=== PATIENT | female | born 1970 | race Caucasian/White ===

== ENCOUNTER 2018-12-16 07:46 | Observation (INO) ==
[2018-12-16] MEDS ORDERED: LACTATED RINGERS 1,000 ML IV ONE (07:57)
[2018-12-16] MEDS ORDERED: ONDANSETRON 4 MG/2 ML VIAL IV ONE (07:57)
--- NOTE | 2018-12-16 08:12 | Emergency Department Note ---
General Adult HPI - General Chief complaint: Cold/Flu Symptoms Stated complaint: cough, nausea/vomiting x 8 days. Time Seen by Provider: 12/16/18 07:57 Source: patient Mode of arrival: ambulatory Limitations: no limitations - History of Present Illness HPI Narrative: This patient has been ill for the last week with flulike symptoms. However symptoms may have started with more of a UTI type picture with some pelvic pain and left flank pain but that seems to have improved. She now has a lot of nausea vomiting started having some diarrhea today achiness all over. Some abdominal cramping. - Related Data Previous Rx's Medication Instructions Recorded bupropion HCl 75 mg tablet 75 mg PO BID #30 tab 11/06/17 buspirone 15 mg tablet 15 mg PO BID #30 tab 11/06/17 naltrexone 50 mg tablet 50 mg PO QDAY #30 tab 11/06/17 sertraline 50 mg tablet 50 mg PO QDAY #30 tab 11/06/17 trazodone 50 mg tablet 25 mg PO QHS #30 tab 11/06/17 Allergies Allergy/AdvReac Type Severity Reaction Status Date / Time codeine Allergy Intermediate Itching Verified 12/16/18 07:49 Review of Systems All systems ED: reviewed and negative except as stated. Past Medical History - Past Medical History Medical history: Reports: no medical history - Social History smoking status: Former smoker Physical Exam Limitations: no limitations General appearance: alert Head: atraumatic Eye: Present: normal appearance ENT: normal exam Neck: Present: normal inspection Chest: Present: normal inspection Respiratory: Present: normal lung sounds bilaterally Cardiovascular: Present: regular rate, normal rhythm, normal heart sounds Abdominal: Present: soft, tenderness. Absent: distention, guarding, rebound Abdominal tenderness: Present: diffuse, mild Neurological: Present: alert Psychiatric: Present: normal affect Skin: Present: warm, dry Course Vital Signs Temperature 98.8 F 12/16/18 07:46 Pulse Rate 110 H 12/16/18 07:46 Respiratory Rate 22 12/16/18 07:46 Blood Pressure 103/59 12/16/18 07:46 Pulse Oximetry (%) 99 12/16/18 07:46 Temperature 98.8 F 12/16/18 07:46 Pulse Rate 72 12/16/18 08:07 Respiratory Rate 20 12/16/18 08:07 Blood Pressure 115/63 12/16/18 08:34 Pulse Oximetry (%) 98 12/16/18 08:07 Medical Decision Making - Lab Data Result diagrams: 12/16/18 08:04 12/16/18 08:04 Lab Results 12/16/18 Range/Units 08:04 WBC 10.3 (4.5-11.0) K/mcL RBC 4.29 (4.00-5.20) M/mcL Hgb 12.1 (12.0-15.0) g/dL Hct 37.0 (36.0-48.0) % MCV 86.2 (80.0-100.0) fL MCH 28.1 (26.0-34.0) pg MCHC 32.6 (31.0-36.0) g/dL RDW 13.7 (11.5-14.5) % Plt Count 292 (140-440) K/mcL MPV 8.5 (7.4-10.4) fL Gran % 87.0 H (38.0-78.0) % Lymph % (Auto) 6.3 L (15.5-49.0) % [place] % (Auto) 6.4 (1.0-12.0) % Eos % (Auto) 0.1 (0.0-7.0) % Baso % (Auto) 0.2 (0.0-2.0) % Gran # 8.9 H (1.8-8.0) K/mcL Lymph # (Auto) 0.7 L (1.5-4.8) K/mcL [place] # (Auto) 0.7 (0.1-0.9) K/mcL Eos # (Auto) 0 (0.0-0.7) K/mcL Baso # (Auto) 0 (0.0-0.3) K/mcL Disposition Pt seen by INSTALLER TECHNICIAN/PA only: No Clinical Impression: Upper respiratory infection Disposition: Still a Patient Condition: Good Time of Disposition: 09:02
[2018-12-16] MEDS ORDERED: METOCLOPRAMIDE 10 MG/2 ML VIAL IV ONE (08:31)
[2018-12-16] MEDS ORDERED: KETOROLAC 30 MG/ML VIAL IV ONE (08:39)
[2018-12-16 08:57] LABS: Basophils # (Auto) 0 K/mcL (0.0-0.3); Basophils % (Auto) 0.2 % (0.0-2.0); Eosinophils # (Auto) 0 K/mcL (0.0-0.7); Eosinophils % (Auto) 0.1 % (0.0-7.0); Lymphocytes # (Auto) 0.7 K/mcL (1.5-4.8); Lymphocytes % (Auto) 6.3 % (15.5-49.0); Mean Cell Volume 86.2 fL (80.0-100.0); Mean Corpuscular HGB Conc 32.6 g/dL (31.0-36.0); Monocytes # (Auto) 0.7 K/mcL (0.1-0.9); Monocytes % (Auto) 6.4 % (1.0-12.0); Platelet Count 292 K/mcL (140-440); RBC 4.29 M/mcL (4.00-5.20); Red Cell Distribution Width 13.7 % (11.5-14.5)
[2018-12-16 09:08] LABS: Appearance,Urine HAZY; Bacteria,Urine FEW /hpf (0); Bilirubin,Urine NEG (NEG); Color,Urine YELLOW; Glucose,Urine (UA) NEGATIVE (NEG); Leukocyte Esterase,Urine 25 /uL (NEG); Mucus,Urine MANY /hpf (0); Protein,Urine 100 mg/dL (NEG); Specific Gravity,Urine 1.019 (1.000-1.035); Urine Blood 0.2 mg/dL (<0.03); Urine Hyaline Cast 1 /lpf (0-2); Urine RBC 63 /hpf (0-1); Urine Squamous Epithelial Cell 5 /hpf (0-4); Urine Transitional Epi Cells < 1 /hpf (0-2); Urine WBC 68 /hpf (0-4); Urobilinogen,Urine NEG (NEG)
[2018-12-16 09:18] LABS: ALT/SGPT 191 U/l (0-40); Albumin 3.5 gm/dL (3.2-5.2); Alkaline Phosphatase 291 U/L (39-117); Blood Urea Nitrogen 11 mg/dl (6-20)
[2018-12-16 10:27] LABS: C-Reactive Protein 22.7 mg/dl (0.0-0.8); Lipase 22 U/L (7-60)
--- NOTE | 2018-12-16 11:04 | Emergency Department Note ---
General Adult HPI - General Chief complaint: Cold/Flu Symptoms Stated complaint: cough, nausea/vomiting x 8 days. Time Seen by Provider: 12/16/18 07:57 Source: patient Mode of arrival: ambulatory Limitations: no limitations - History of Present Illness HPI Narrative: See dictated history and physical by Dr. suero. Patient has rather significant epigastric area discomfort. A lipase is being added to her labs because of her elevated liver function tests and epigastric pain. - Related Data Previous Rx's Medication Instructions Recorded bupropion HCl 75 mg tablet 75 mg PO BID #30 tab 11/06/17 buspirone 15 mg tablet 15 mg PO BID #30 tab 11/06/17 naltrexone 50 mg tablet 50 mg PO QDAY #30 tab 11/06/17 sertraline 50 mg tablet 50 mg PO QDAY #30 tab 11/06/17 trazodone 50 mg tablet 25 mg PO QHS #30 tab 11/06/17 Allergies Allergy/AdvReac Type Severity Reaction Status Date / Time codeine Allergy Intermediate Itching Verified 12/16/18 07:49 Past Medical History - Past Medical History [facility] Narrative: Medical History (Last Updated 12/16/18 @ 12:24 by Luis Antonio Matt DO) Alcoholism, chronic (Chronic) Marijuana smoker (Chronic) Cigarette smoker (Chronic) Depression (Chronic) - Social History smoking status: Former smoker Physical Exam Limitations: no limitations General appearance: alert, in no apparent distress Head: atraumatic, normocephalic Eye: Present: EOMI Neck: Present: trachea midline. Absent: lymphadenopathy, thyromegaly Chest: Present: symmetric chest wall rise Respiratory: Present: normal lung sounds bilaterally. Absent: respiratory distress, rales/crackles, wheezes Cardiovascular: Present: regular rate, normal rhythm. Absent: systolic murmur, diastolic murmur Abdominal: Present: soft, tenderness, guarding. Absent: distention, rebound, rigidity, organomegaly, mass Abdominal tenderness: Present: epigastrium, moderate Extremities: Absent: pedal edema, pretibial edema, calf tenderness Neurological: Present: alert, oriented X3 Psychiatric: Present: normal affect, normal mood Skin: Present: warm, dry Course Vital Signs Temperature 98.8 F 12/16/18 07:46 Pulse Rate 110 H 12/16/18 07:46 Respiratory Rate 22 12/16/18 07:46 Blood Pressure 103/59 12/16/18 07:46 Pulse Oximetry (%) 99 12/16/18 07:46 Temperature 98.8 F 12/16/18 07:46 Pulse Rate 72 12/16/18 08:07 Respiratory Rate 20 12/16/18 08:07 Blood Pressure 117/69 12/16/18 12:00 Pulse Oximetry (%) 98 12/16/18 08:07 Medical Decision Making - MDM Narrative Medical decision making narrative: Labs include a white count of 10.3, hemoglobin 12.1, hematocrit 37.0. LFTs elevated with AST at 77, ALT at 191, alk phos at 291. UA demonstrates 25 leukocyte esterase with 68 WBCs, 5 squamous epis and a few bacteria. 11:00 AM Lipase is negative. CRP however is markedly elevated at 22.1. Because of this need to do imaging. We will start with ultrasound because she is fairly thin. - Medical Records Medical records reviewed: Yes I reviewed the patient's medical records. - Lab Data Lab results reviewed: Yes I reviewed the patient's lab results. Result diagrams: 12/16/18 08:04 12/16/18 08:04 Lab Results 12/16/18 12/16/18 12/16/18 Range/Units 08:04 08:04 08:04 WBC 10.3 (4.5-11.0) K/mcL RBC 4.29 (4.00-5.20) M/mcL Hgb 12.1 (12.0-15.0) g/dL Hct 37.0 (36.0-48.0) % MCV 86.2 (80.0-100.0) fL MCH 28.1 (26.0-34.0) pg MCHC 32.6 (31.0-36.0) g/dL RDW 13.7 (11.5-14.5) % Plt Count 292 (140-440) K/mcL MPV 8.5 (7.4-10.4) fL Gran % 87.0 H (38.0-78.0) % Lymph % (Auto) 6.3 L (15.5-49.0) % [place] % (Auto) 6.4 (1.0-12.0) % Eos % (Auto) 0.1 (0.0-7.0) % Baso % (Auto) 0.2 (0.0-2.0) % Gran # 8.9 H (1.8-8.0) K/mcL Lymph # (Auto) 0.7 L (1.5-4.8) K/mcL [place] # (Auto) 0.7 (0.1-0.9) K/mcL Eos # (Auto) 0 (0.0-0.7) K/mcL Baso # (Auto) 0 (0.0-0.3) K/mcL Sodium 134 (133-145) mmol/L Potassium 3.9 (3.3-5.1) mmol/L Chloride 97 (96-108) mmol/L Carbon Dioxide 24 (22-30) mmol/L Anion Gap 13.0 (8-16) BUN 11 (6-20) mg/dl Creatinine 0.8 (0.6-1.1) mg/dl GFR Calculation 87 Glucose 146 H (70-105) mg/dL Calcium 9.3 (8.6-10.4) mg/dl Total Bilirubin 0.3 (0.0-1.0) mg/dL AST 77 H (0-37) U/l ALT 191 H (0-40) U/l Alkaline Phosphatase 291 H (39-117) U/L C-Reactive Protein 22.7 H (0.0-0.8) mg/dl Total Protein 7.0 (5.9-8.4) gm/dL Albumin 3.5 (3.2-5.2) gm/dL Globulin 3.5 (2.2-3.7) gm/dL Albumin/Globulin Ratio 1.0 (1.0-2.3) Lipase 22 (7-60) U/L Urine Color Urine Appearance Urine pH (5.0-9.0) Ur Specific [place] (1.000-1.035) Urine Protein (NEG) mg/dL Urine Glucose (UA) (NEG) mg/dL Urine Ketones (NEG) mg/dL Urine Occult Blood (<0.03) mg/dL Urine Nitrate (NEG) Urine Bilirubin (NEG) mg/dL Urine Urobilinogen (NEG) mg/dL Ur Leukocyte Esterase (NEG) /uL Urine RBC (0-1) /hpf Urine WBC (0-4) /hpf Ur Squamous Epith Cells (0-4) /hpf Ur Transition Epith Cell (0-2) /hpf Urine Bacteria (0) /hpf Hyaline Casts (0-2) /lpf Urine Mucus (0) /hpf Ur Culture Indicated? 12/16/18 Range/Units 08:30 WBC (4.5-11.0) K/mcL RBC (4.00-5.20) M/mcL Hgb (12.0-15.0) g/dL Hct (36.0-48.0) % MCV (80.0-100.0) fL MCH (26.0-34.0) pg MCHC (31.0-36.0) g/dL RDW (11.5-14.5) % Plt Count (140-440) K/mcL MPV (7.4-10.4) fL Gran % (38.0-78.0) % Lymph % (Auto) (15.5-49.0) % [place] % (Auto) (1.0-12.0) % Eos % (Auto) (0.0-7.0) % Baso % (Auto) (0.0-2.0) % Gran # (1.8-8.0) K/mcL Lymph # (Auto) (1.5-4.8) K/mcL [place] # (Auto) (0.1-0.9) K/mcL Eos # (Auto) (0.0-0.7) K/mcL Baso # (Auto) (0.0-0.3) K/mcL Sodium (133-145) mmol/L Potassium (3.3-5.1) mmol/L Chloride (96-108) mmol/L Carbon Dioxide (22-30) mmol/L Anion Gap (8-16) BUN (6-20) mg/dl Creatinine (0.6-1.1) mg/dl GFR Calculation Glucose (70-105) mg/dL Calcium (8.6-10.4) mg/dl Total Bilirubin (0.0-1.0) mg/dL AST (0-37) U/l ALT (0-40) U/l Alkaline Phosphatase (39-117) U/L C-Reactive Protein (0.0-0.8) mg/dl Total Protein (5.9-8.4) gm/dL Albumin (3.2-5.2) gm/dL Globulin (2.2-3.7) gm/dL Albumin/Globulin Ratio (1.0-2.3) Lipase (7-60) U/L Urine Color Yellow Urine Appearance Hazy Urine pH 6.0 (5.0-9.0) Ur Specific [place] 1.019 (1.000-1.035) Urine Protein 100 A (NEG) mg/dL Urine Glucose (UA) Negative (NEG) mg/dL Urine Ketones Neg (NEG) mg/dL Urine Occult Blood 0.2 A (<0.03) mg/dL Urine Nitrate Neg (NEG) Urine Bilirubin Neg (NEG) mg/dL Urine Urobilinogen Neg (NEG) mg/dL Ur Leukocyte Esterase 25 A (NEG) /uL Urine RBC 63 H (0-1) /hpf Urine WBC 68 H (0-4) /hpf Ur Squamous Epith Cells 5 H (0-4) /hpf Ur Transition Epith Cell < 1 (0-2) /hpf Urine Bacteria Few A (0) /hpf Hyaline Casts 1 (0-2) /lpf Urine Mucus Many A (0) /hpf Ur Culture Indicated? No - Radiology Data Radiology results reviewed: Yes I reviewed the patient's radiology results. Disposition Pt seen by DESIGN ENGINEER PRODUCTS/PA only: No Clinical Impression: Elevated LFTs, Elevated serum alkaline phosphatase level Upper respiratory infection Qualifiers: URI type: unspecified URI Qualified Code(s): J06.9 - Acute upper respiratory infection, unspecified UTI (urinary tract infection) Qualifiers: Urinary tract infection type: acute cystitis Hematuria presence: without hematuria Qualified Code(s): N30.00 - Acute cystitis without hematuria Cholecystitis, acute with cholelithiasis Qualifiers: Biliary obstruction: with biliary obstruction Qualified Code(s): K80.01 - Calculus of gallbladder with acute cholecystitis with obstruction Summary: 12:10 PM I spoke with Dr. Rashel Murphy, general surgeon, who kindly accepts this patient in transfer to inpatient care because of cholelithiasis and cholecystitis with a probable impacted stone in the neck of the gallbladder measuring 7-8 mm. She a lso has a UTI probably and a recent viral URI. Will provide holding orders including Zosyn, pain meds, nausea med, and Tessalon Perles for her cough. At present she does not need anything for pain or nausea. Disposition: Xfer As Inpt ([facility]) Condition: Good
--- NOTE | 2018-12-16 11:51 | Ultrasound Report ---
History: Epigastric pain with elevated liver enzymes FINDINGS: The liver is normal in size and homogeneous. There is an incidental 1.3 x 1.7 x 2.2 cm cyst in the central portion liver at the boundary between the left and right lobes. Doppler shows normal blood flow in the hepatic and portal veins. The gallbladder wall is mildly thickened ranging from 3 to 4 mm. The patient was nontender while scanning over the gallbladder. In the neck of the gallbladder there is a 7 x 8 mm echogenic structure which did not move. This is more likely a stone rather than a polyp. There is no sludge within the lumen. No para cholecystic fluid collection is present. The pancreas appears normal in size and homogeneous. No ascites is present. IMPRESSION: Cholelithiasis and thickened gallbladder wall suggesting chronic cholecystitis Simple cyst in the liver Interpreted and Authenticated by: Nazario Angelo 12/16/18
[2018-12-16] MEDS ORDERED: ONDANSETRON 4 MG/2 ML VIAL IV PRN (12:10)
[2018-12-16] MEDS ORDERED: NALOXONE HCL 0.4 MG/ML VIAL IV PRN (12:10)
[2018-12-16] MEDS ORDERED: HYDROmorphone 2 MG/ML VIAL IV PRN (12:15)
[2018-12-16] MEDS ORDERED: PIPERACILLIN SODIUM/TAZOBACTAM 3.375 GM in DEXTROSE 5% IN WATER 50 ML IV ONE (12:16)
[2018-12-16] MEDS ORDERED: BENZONATATE 100 MG CAPSULE PO ONE (12:18)
[2018-12-16] MEDS: 0.9 % SODIUM CHLORIDE 1,000 ML IV SCH (12:56)
[2018-12-16] MEDS ORDERED: PROMETHAZINE 25 MG/ML VIAL IV PRN (16:34)
[2018-12-16] MEDS ORDERED: LORazepam 2 MG/ML VIAL IV PRN (16:34)
--- NOTE | 2018-12-16 16:41 | General Surg History&Physical ---
History of Present Illness Patient information: Note initiated : 12/16/18 at 4:38 pm Service Date, if different from initiated Date: [] Patient: Letitia Young a 48 y/o F admitted on 12/16/18 for Cough, N/V x 8 Days. Chief Complaint: [] Chief complaint: abdominal pain in general fatigue and malaise HPI: Ms. Young is a 48 year old F was admitted with acute cholecystitis with cholelithiasis. The patient is an extremely poor historian. She states that she became ill last week. She had what she describes as a flulike illness since last Friday. This was associated with headache nausea cough, abdominal pain, heartburn. She had multiple episodes of nausea but is not quite sure if it was postprandial. Her cough was productive of some phlegm. Her bowel movements have been daily. She did not have any dysuria frequency urgency. She was seen in the emergency room and was noted to have some epigastric and right upper quadrant pain. Abdominal ultrasound revealed thickened gallbladder wall with stone impacted in the gallbladder neck. She is admitted and will have cholecystectomy tomorrow. Review of Systems - Constitutional fatigue, headache(s), malaise, weakness, weight loss - EENT Nose, mouth and throat: headache(s), no nasal congestion, no sinus pain, no sore throat, no tongue swelling - Cardiovascular no chest pain with activity, no dyspnea on exertion, no palpatations, no syncope - Respiratory cough, chest congestion, change in phlegm color, pain with cough, no wheezing - Gastrointestinal abdominal pain, bloating, cramping, heartburn, nausea, vomiting - Genitourinary Genitourinary: no dysuria, no urinary frequency, no urinary hesitancy, no urinary incontinence, no urinary urgency - Musculoskeletal no arthralgias, no joint swelling, no neck pain, no numbness - Integumentary no new lesions, no non-healing lesions, no pruritus, no rash - Neurological headache(s), no abnormal hearing, no confusion, no dizziness - Psychiatric anxiety, depression, no memory loss - Endocrine no fatigue, no polydipsia, no polyphagia, no polyuria - Hematologic/Lymphatic no easy bleeding, no easy bruising, no lymphadenopathy - Allergic/Immunologic no tongue swelling, no throat swelling, no itchy eyes, no uticaria, no wheezing, no lip swelling Past History Past medical history: Chronic depression Prior history of alcoholism No history of chronic medical illness Patient has not taken prescribed medications for more than a year Past surgical history: No surgical procedures Past family history: Both parents A 73 alive and well 5 siblings all well Past social history: History of chronic alcoholism and still drinks Former smoker Daily marijuana use Medications and Allergies Home Medications Medication Instructions Recorded Confirmed Type No Known Home Meds 12/16/18 12/16/18 History Allergies Allergy/AdvReac Type Severity Reaction Status Date / Time codeine Allergy Intermediate Itching Verified 12/16/18 07:49 Exam Temp Pulse Resp BP Pulse Ox 98.6 F 95 H 18 110/65 97 12/16/18 16:00 12/16/18 16:00 12/16/18 16:00 12/16/18 16:00 12/16/18 16:00 - General physical appearance well developed, well nourished, no distress, moderate pain - Eyes PERRL, normal ocular movement. negative: icteric - ENT normal pinna, normal nares, normal mucosa, no hearing loss, no congestion - Head Head exam IM: Present: atraumatic, normal inspection, normocephalic - Neck no masses, no bruits, trachea midline, no lymphadenopathy, no venous distension - Cardiovascular Cardiovascular exam IM: Present: normal rate and rhythm, RRR, +S1, +S2. Absent: irregular rhythm, JVD, tachycardia - Respiratory normal expansion, normal respiratory effort, clear to auscultation - Abdomen Abdomen: Present: soft, tender (right upper quadrant and epigastric tenderness with guarding), bowel sounds Hernia: Present: none - Genitourinary Present: normal external genitalia - Integumentary Present: no rash, no growths, no abnormal pigmentation - Neurologic Present: normal coordination, normal sensation - Musculoskeletal Present: normal gait, normal posture - Psychiatric Present: oriented to time, oriented to person, oriented to place, speech is normal, memory intact Assessment and Plan (1) Cholecystitis, acute with cholelithiasis Start antibiotic coverage tonight Nothing by mouth after midnight Schedule for cholecystectomy tomorrow Status: Acute Qualifiers: Biliary obstruction: without biliary obstruction Qualified Code(s): K80.00 - Calculus of gallbladder with acute cholecystitis without obstruction (2) UTI (urinary tract infection) Will cover with IV antibiotics and discharged on oral antibiotics Status: Acute Qualifiers: Urinary tract infection type: acute cystitis Hematuria presence: without hematuria Qualified Code(s): N30.00 - Acute cystitis without hematuria (3) Alcoholism, chronic Status: Chronic Comment: states quit daily use Nov 2018 (4) Depression Status: Chronic Qualifiers: Depression Type: unspecified Qualified Code(s): F32.9 - Major depressive disorder, single episode, unspecified; F32.9 - Major depressive disorder, single episode, unspecified; F32.9 - Major depressive disorder, single episode, unspecified
[2018-12-16 17:21] LABS: Amphetamine Screen,Urine NONE DETECTED (NONDETECTED); Benzodiazepines Screen,Urine NONE DETECTED (NONDETECTED); Cocaine Screen,Urine NONE DETECTED (NONDETECTED); Opiate Screen,Urine NONE DETECTED (NONDETECTED); Oxycodone, Urine Screen NONE DETECTED (NONDETECTED)
[2018-12-16] MEDS: PIPERACILLIN SODIUM/TAZOBACTAM 3.375 GM in DEXTROSE 5% IN WATER 50 ML IV SCH ×2 (18:05→23:43)
[2018-12-16] MEDS: PANTOPRAZOLE 40 MG VIAL IV SCH (18:10)
[2018-12-16] MEDS ORDERED: ACETAMINOPHEN 1,000 MG/100 ML BOTTLE IV ONE ×2 (18:23→21:58)
[2018-12-16] MEDS: ACETAMINOPHEN 1,000 MG in PREMIX 1 BAG IV SCH ×2 (18:26→22:04)
[2018-12-17] MEDS: 0.9 % SODIUM CHLORIDE 1,000 ML IV SCH ×5 (03:41→19:25)
[2018-12-17] MEDS: HYDROmorphone 2 MG/ML VIAL IV PRN ×7 (03:49→23:45)
[2018-12-17] MEDS ORDERED: ACETAMINOPHEN 1,000 MG/100 ML BOTTLE IV ONE ×2 (04:35→11:09)
[2018-12-17] MEDS: ACETAMINOPHEN 1,000 MG in PREMIX 1 BAG IV SCH ×2 (04:38→12:26)
[2018-12-17 06:22] LABS: Basophils # (Auto) 0 K/mcL (0.0-0.3); Basophils % (Auto) 0.4 % (0.0-2.0); Eosinophils # (Auto) 0.1 K/mcL (0.0-0.7); Granulocytes % (Auto) 71.8 % (38.0-78.0); Lymphocytes # (Auto) 1.3 K/mcL (1.5-4.8); Mean Cell Volume 85.6 fL (80.0-100.0); Mean Corpuscular HGB Conc 32.7 g/dL (31.0-36.0); Monocytes # (Auto) 0.9 K/mcL (0.1-0.9); Monocytes % (Auto) 10.8 % (1.0-12.0); Platelet Count 259 K/mcL (140-440); RBC 3.67 M/mcL (4.00-5.20); Red Cell Distribution Width 13.9 % (11.5-14.5)
[2018-12-17 06:52] LABS: ALT/SGPT 134 U/l (0-40); Alkaline Phosphatase 245 U/L (39-117); Bilirubin,Direct < 0.2 mg/dL (0.0-0.3); Blood Urea Nitrogen 7 mg/dl (6-20); Gamma Glutamyl Transpeptidase 102 U/L (5-36); Uric Acid 1.7 mg/dL (2.5-8.0)
[2018-12-17] MEDS: PANTOPRAZOLE 40 MG VIAL IV SCH ×2 (07:35→17:17)
[2018-12-17] MEDS: PIPERACILLIN SODIUM/TAZOBACTAM 3.375 GM in DEXTROSE 5% IN WATER 50 ML IV SCH ×3 (09:15→17:57)
[2018-12-17] MEDS ORDERED: IPRATROPIUM/ALBUTEROL 3 ML AMPUL.NEB NEB ONE (10:48)
[2018-12-17] MEDS ORDERED: ONDANSETRON 4 MG/2 ML VIAL IV ONE (10:55)
[2018-12-17] MEDS ORDERED: LIDOCAINE HCL/PF 100 MG/5 ML SYRINGE IV ONE (10:55)
[2018-12-17] MEDS ORDERED: PROPOFOL 200 MG/20 ML VIAL IV ONE (10:55)
[2018-12-17] MEDS ORDERED: fentaNYL 250 MCG/5 ML VIAL IV ONE (10:55)
[2018-12-17] MEDS ORDERED: ROCURONIUM 10 MG/ML ML IV ONE (10:55)
[2018-12-17] MEDS ORDERED: SUGAMMADEX SODIUM 200 MG/2 ML VIAL IV ONE (10:55)
[2018-12-17] MEDS ORDERED: MIDAZOLAM 5 MG/5 ML VIAL IV ONE (10:55)
[2018-12-17] MEDS ORDERED: DEXAMETHASONE 10 MG/ML VIAL IV ONE (10:55)
[2018-12-17] MEDS ORDERED: FLUMAZENIL 0.1 MG/ML ML IV PRN (11:09)
[2018-12-17] MEDS ORDERED: PROMETHAZINE 25 MG/ML VIAL IM PRN (11:09)
[2018-12-17] MEDS ORDERED: IPRATROPIUM/ALBUTEROL 3 ML AMPUL.NEB NEB PRN (11:09)
[2018-12-17] MEDS ORDERED: KETOROLAC 30 MG/ML VIAL IV PRN (11:09)
[2018-12-17] MEDS ORDERED: NALOXONE HCL 0.4 MG/ML VIAL IV PRN (11:09)
[2018-12-17] MEDS ORDERED: MEPERIDINE 25 MG/ML SYRINGE IV PRN (11:09)
[2018-12-17] MEDS ORDERED: LACTATED RINGERS 250 ML IV PRN (11:09)
[2018-12-17] MEDS ORDERED: diphenhydrAMINE 50 MG/ML VIAL IV PRN (11:09)
[2018-12-17] MEDS ORDERED: BENZOCAINE/MENTHOL 1 LOZENGE PO PRN (11:09)
[2018-12-17] MEDS ORDERED: PROMETHAZINE 25 MG/ML VIAL IV PRN ×2 (11:09→12:43)
[2018-12-17] MEDS ORDERED: ONDANSETRON 4 MG/2 ML VIAL IV PRN ×2 (11:09→12:43)
[2018-12-17] MEDS ORDERED: LACTATED RINGERS 1,000 ML IV SCH (11:15)
[2018-12-17] MEDS ORDERED: IOPAMIDOL 100 ML BOTTLE IJ ONE (11:30)
--- NOTE | 2018-12-17 11:55 | Brief Operative Note ---
Date of procedure: 12/17/18 Pre-op diagnosis: cholelithiasis with cholecystitis Post-op diagnosis: other (cholelithiasis with cholecystitis) Procedure: LAPAROSCOPIC CHOLECYSTECTOMY WITH CHOLANGIOGRAM Grafts/Implants: No Anesthesia: GETA Findings: EDEMATOUS GALLBLADDER WITH ADHESIONS Complications: none Surgeon: Harriet Murphy Estimated blood loss (cc): 5 Specimens Removed/Pathology: other (GALLBLADDER) Condition: stable Disposition: PACU
[2018-12-17] MEDS: fentaNYL 100 MCG/2 ML VIAL IV PRN ×4 (12:17→12:27)
[2018-12-17] MEDS: 0.9 % SODIUM CHLORIDE 10 ML SYRINGE IV SCH ×2 (13:29→22:12)
[2018-12-17] MEDS: ACETAMINOPHEN 1,000 MG/100 ML BOTTLE IV SCH ×2 (17:18→23:45)
[2018-12-17] MEDS: LORazepam 2 MG/ML VIAL IV PRN (21:15)
[2018-12-18] MEDS: PIPERACILLIN SODIUM/TAZOBACTAM 3.375 GM in DEXTROSE 5% IN WATER 50 ML IV SCH ×3 (00:18→13:27)
[2018-12-18] MEDS: LORazepam 2 MG/ML VIAL IV PRN (01:26)
[2018-12-18] MEDS: HYDROmorphone 2 MG/ML VIAL IV PRN ×3 (02:46→10:42)
[2018-12-18] MEDS: 0.9 % SODIUM CHLORIDE 1,000 ML IV SCH ×2 (04:44→15:28)
[2018-12-18] MEDS: ACETAMINOPHEN 1,000 MG/100 ML BOTTLE IV SCH ×2 (05:57→12:21)
[2018-12-18] MEDS: 0.9 % SODIUM CHLORIDE 10 ML SYRINGE IV SCH ×2 (06:00→13:32)
[2018-12-18 06:55] LABS: Basophils # (Auto) 0 K/mcL (0.0-0.3); Basophils % (Auto) 0 % (0.0-2.0); Eosinophils # (Auto) 0 K/mcL (0.0-0.7); Eosinophils % (Auto) 0 % (0.0-7.0); Granulocytes % (Auto) 85.7 % (38.0-78.0); Lymphocytes % (Auto) 9.2 % (15.5-49.0); Mean Cell Volume 85.8 fL (80.0-100.0); Monocytes # (Auto) 0.5 K/mcL (0.1-0.9); Monocytes % (Auto) 5.1 % (1.0-12.0); Platelet Count 286 K/mcL (140-440); Red Cell Distribution Width 13.8 % (11.5-14.5)
[2018-12-18] MEDS: PANTOPRAZOLE 40 MG VIAL IV SCH (07:28)
[2018-12-18 07:57] LABS: ALT/SGPT 149 U/l (0-40); Albumin 3.1 gm/dL (3.2-5.2); Alkaline Phosphatase 270 U/L (39-117); Bilirubin,Direct < 0.2 mg/dL (0.0-0.3); Blood Urea Nitrogen 7 mg/dl (6-20); Gamma Glutamyl Transpeptidase 116 U/L (5-36); Uric Acid 1.5 mg/dL (2.5-8.0)
--- NOTE | 2018-12-18 11:56 | Operative Note ---
DATE OF OPERATION: 12/17/2018 PREOPERATIVE DIAGNOSIS: Cholelithiasis with cholecystitis. POSTOPERATIVE DIAGNOSIS: Cholelithiasis with cholecystitis. PROCEDURE: Laparoscopic cholecystectomy with cholangiogram. SURGEON: Harriet Murphy MD DESCRIPTION OF PROCEDURE: Under general anesthesia, the patient's abdomen was prepped and draped in a sterile field. A time-out procedure was carried out as per protocol. Supraumbilical incision was made. Veress needle was inserted. Abdomen was insufflated with 3 liters of CO2. A 12 mm port was placed. An edematous gallbladder with multiple attempts and acute adhesions were noted. Under videoscopic guidance, a 12 mm port and two 5 mm ports were placed in the right subcostal region. The gallbladder was grasped in position. Dissection at the infundibulum was carried out, and the cystic duct was identified. The cystic artery was also identified. Cystic duct was dissected and was clipped at its junction with the gallbladder with a single clip. A cholangiocath was placed transabdominally and a small incision was made in the cystic duct distal to the clip. Cholangiocath was placed and was secured with a single clip. A cholangiogram was done. It showed normal caliber duct with easy tapering into the duodenum with free flow into the duodenum without filling defect. Four photos were taken to assess for radiologic evaluation. The instrumentation was replaced and the cholangiocatheter was removed. The duct was then further clipped with 4 clips distally and divided. Cystic artery was dissected onto the wall of the gallbladder, clipped with five clips and divided. The gallbladder was then from the infrahepatic bed using electrocautery. It was placed in an Endopouch and retrieved. Irrigation was carried out. Hemostasis was achieved with electrocautery. The CO2 was allowed to escape from the abdomen, and the ports were removed. The fascia at the umbilicus was closed with interrupted 0 Vicryl. Skin incisions were closed with vel. The patient tolerated the procedure well. She was awakened, transferred to a bed and taken to the postanesthetic care unit in stable, satisfactory condition. LCS:quang Job ID: [id number] Doc ID: [id number] Harriet Murphy M.D.
--- NOTE | 2018-12-18 12:00 | Surgical Pathology Report ---
HISTOLOGY SPECIMEN MICROSCOPIC DIAGNOSIS GALLBLADDER, CHOLECYSTECTOMY: -- MILD CHRONIC CHOLECYSTITIS WITH CHOLELITHIASIS. (RLF:shannan) CLINICAL HISTORY Nausea/vomiting x8 days. PROCEDURAL IMPRESSION Cholecystitis with cholelithiasis. GROSS DESCRIPTION Received in formalin designated gallbladder, is a 7.7 x 3.1 x 2.9 cm purple-pink gallbladder. The majority of the serosa is smooth and glistening with approximately 25% roughened brown[place]. There are two metal clamps present, one on the cystic duct. The mucosa is velvety pink-[place] with no lesions identified. The wall is up to 0.1 cm thick. A single 0.2 cm in greatest dimension rough surfaced stone is found in the wall of the cystic duct. Lock Stitch Channeler sections submitted in one cassette. (KGW:martha) Electronically Signed by: Mariama Cano M.D.
--- NOTE | 2018-12-18 13:59 | Discharge Summary ---
Providers - Providers Patient information: Note initiated : 12/18/18 at 1:57 pm Service Date, if different from initiated Date: [] Patient: Letitia Young 48 y/o F admitted on 12/16/18 for Cough, N/V x 8 Days. Chief Complaint: [] Date of admission: 12/16/18 Discharge date: 12/18/18 Attending physician: Harriet Murphy Hospitalization Hospital course: 48-year-old female admitted with general malaise and nausea and upper abdominal pain. She had epigastric and right upper quadrant tenderness.CT scan showed thickened gallbladder wall with stone impacted in the neck of the gallbladder. She had a cholangiogram which did not show common bile duct stone with free flow of contrast into the duodenum and easy tapering of the papilla. She had an uneventful cholecystectomy. She has mild elevation of her LFTs but this is felt to be related to her alcohol excess. Patient is stable except for mild nausea and headache. She is tolerating diet without difficulty. She was discharged home and will have follow-up in the office in 2 weeks. Discharge diagnosis: cholelithiasis with cholecystitis Secondary discharge diagnosis: Chronic depression Reason for admission: abdominal pain and cholecystitis Procedures: Laparoscopic cholecystectomy with intraoperative cholangiogram Pertinent studies/significant findings: Upper abdominal ultrasound CT of abdomen and pelvis with contrast Complications: None Exam Temp Pulse Resp BP Pulse Ox 97.3 F 65 20 135/84 96 12/18/18 12:00 12/18/18 03:34 12/18/18 12:00 12/18/18 12:00 12/18/18 12:00 - General physical appearance well developed, well nourished, no distress - Eyes PERRL, normal ocular movement - ENT normal pinna, normal nares, normal mucosa, no hearing loss, no congestion - Head Head exam IM: Present: atraumatic, normocephalic - Neck no masses, no bruits, trachea midline, no lymphadenopathy, no venous distension - Cardiovascular Cardiovascular exam IM: Present: normal rate and rhythm - Respiratory normal expansion, normal respiratory effort, clear to percussion, clear to auscultation - Abdomen Abdomen: Present: soft, tender (mild tenderness around port sites otherwise benign abdominal exam), bowel sounds Hernia: Present: none - Genitourinary Present: normal external genitalia - Integumentary Present: no rash, no growths, no abnormal pigmentation - Neurologic Present: normal coordination, normal sensation - Musculoskeletal Present: normal gait, normal posture - Psychiatric Present: oriented to time, oriented to person, oriented to place, speech is normal, memory intact Discharge Plan - Patient/Caregiver Discharge Instructions Activity: increase activity as tolerated, resume usual activities as tolerated Diet: Low Fat Prescriptions: Butalb/Acetaminophen/Caffeine [[id number]] 1 each PO Q6HP PRN #20 capsule PRN Reason: Headache oxyCODONE/APAP [Percocet 5-325 mg] 1 tab PO Q4HP PRN #40 tab PRN Reason: Pain Promethazine [Phenergan] 25 mg PO Q4HP PRN #20 tablet MDD 4 PRN Reason: Nausea And Vomiting - Follow up Plan Follow up with: Harriet Murphy MD [Physician] - Disposition: Home, Self-Care Prognosis: Good Rehab Potential: Good I certify that the patient requires SNF services.: No Overall status at discharge: patient is progressing back to baseline Pending Studies Resuscitation Status Full Code Diet Regular Diet Start FriDec 18 [id number] Hydromorphone HCl (Dilaudid) 1 mg IV Q2HP PRN PRN Reason: PAIN LEVEL > 6 Last Admin: 12/18/18 10:42 Dose: 1 mg Documented by: Admin: 12/18/18 04:44 Dose: 1 mg Documented by: Admin: 12/18/18 02:46 Dose: 1 mg Documented by: Admin: 12/17/18 23:45 Dose: 1 mg Documented by: Admin: 12/17/18 21:30 Dose: 1 mg Documented by: Admin: 12/17/18 19:25 Dose: 1 mg Documented by: Admin: 12/17/18 17:17 Dose: 1 mg Documented by: Admin: 12/17/18 14:59 Dose: 1 mg Documented by: JUAN Acetaminophen (Ofirmev) 1,000 mg in 100 mls @ 200 mls/hr IV Q6H LUI Last Infusion: 12/18/18 13:24 Dose: 0 mls/hr Documented by: Admin: 12/18/18 12:21 Dose: 200 mls/hr Documented by: Infusion: 12/18/18 06:32 Dose: 0 mls/hr Documented by: Admin: 12/18/18 05:57 Dose: 200 mls/hr Documented by: Infusion: 12/18/18 00:18 Dose: 0 mls/hr Documented by: Admin: 12/17/18 23:45 Dose: 200 mls/hr Documented by: Infusion: 12/17/18 17:58 Dose: 0 mls/hr Documented by: Admin: 12/17/18 17:18 Dose: 200 mls/hr Documented by: JUAN Sodium Chloride (Sodium Chloride 0.9%) 1,000 mls @ 125 mls/hr IV .Q8H [facility] Last Admin: 12/18/18 04:44 Dose: 125 mls/hr Documented by: Infusion: 12/18/18 03:25 Dose: 125 mls/hr Documented by: Admin: 12/17/18 19:25 Dose: 125 mls/hr Documented by: Infusion: 12/17/18 19:25 Dose: 125 mls/hr Documented by: Admin: 12/17/18 12:57 Dose: 125 mls/hr Documented by: JUAN Piperacillin Sod/Tazobactam (Sod 3.375 gm/ Dextrose) 50 mls @ 100 mls/hr IV Q6H [facility] Last Admin: 12/18/18 13:27 Dose: 100 mls/hr Documented by: Infusion: 12/18/18 06:34 Dose: 0 mls/hr Documented by: Admin: 12/18/18 06:02 Dose: 100 mls/hr Documented by: Infusion: 12/18/18 01:24 Dose: 0 mls/hr Documented by: Admin: 12/18/18 00:18 Dose: 100 mls/hr Documented by: Infusion: 12/17/18 19:13 Dose: 0 mls/hr Documented by: Admin: 12/17/18 17:57 Dose: 100 mls/hr Documented by: JUAN Lorazepam (Ativan) 0.5 mg IV Q4HP PRN PRN Reason: ANXIETY/SEDATION Last Admin: 12/18/18 01:26 Dose: 0.5 mg Documented by: Admin: 12/17/18 21:15 Dose: 0.5 mg Documented by: ADRIANNE Ondansetron HCl (Zofran) 4 mg IV Q4HP PRN PRN Reason: Nausea And Vomiting Last Admin: 12/18/18 06:12 Dose: 4 mg Documented by: ADRIANNE Pantoprazole Sodium (Protonix) 40 mg IV BIDAC [facility] Last Admin: 12/18/18 07:28 Dose: 40 mg Documented by: Admin: 12/17/18 17:17 Dose: 40 mg Documented by: JUAN Sodium Chloride (Saline Flush) 10 ml IV Q8 [facility] Last Admin: 12/18/18 13:32 Dose: Not Given Documented by: Admin: 12/18/18 06:00 Dose: 10 ml Documented by: Admin: 12/17/18 22:12 Dose: Not Given Documented by: Admin: 12/17/18 13:29 Dose: Not Given Documented by: JUAN Shift Summary 12/18/18 04:56 Shift Summary by Gracie Combs Admitted 12/16, lap lauren done 12/17. A&O x4, became agitated and anxious in the evening, medicated with 0.5 mg of Ativan x2. Reporting stabbing pain to abdomen, headache, medicated with scheduled Ofirmev Q6H, breakthrough pain with 1 mg Dilaudid x4 this shift. Zosyn continued Q6H. Up with SBA, voiding per BR. Last BM yesterday. New 22G PIV to L wrist. Full liquid diet, no reports of nausea. 4 lap sites with vel and tegaderm, CDI. SCDs. Bedside report to follow. Initialized on 12/18/18 04:56 - END OF NOTE
== END 2018-12-18 15:16 | disposition home or self-care (01) ==
LOC: ED 07:46 → MEDSUR 07:46
PROVIDERS: ADMIT Family Medicine Adult Medicine; ATTEND Family Medicine Adult Medicine